=== PATIENT | female | born 1945 | race Two or more races ===

== ENCOUNTER 2020-03-20 14:29 | Emergency (ER) | payer OTHER ==
[~2020-03-20] VITALS: Ht 167.6 cm; Wt 60.8 kg
== END 2020-03-20 19:24 | disposition home or self-care (01) ==
LOC: ER 14:29 → EDBD 14:41 → ER 19:24
DX: K82.4 Cholesterolosis of gallbladder (principal)

== ENCOUNTER 2021-01-21 12:29 | Emergency (ER) | payer OTHER ==
[~2021-01-21] VITALS: Ht 167.6 cm; Wt 65.8 kg
[2021-01-21] MEDS ORDERED: CHILDREN'S ASPI81 MG (12:49)
[2021-01-21] MEDS ORDERED: ATACAND32 MG (12:49)
[2021-01-21] MEDS ORDERED: NORVASC5 MG (12:49)
[2021-01-21] MEDS ORDERED: TOPROL XL25 M1 (12:49)
== END 2021-01-21 16:18 | disposition home or self-care (01) ==
LOC: ER 12:29
DX: R07.89 Other chest pain (principal); F41.8 Other specified anxiety disorders; Z03.818 Encounter for observation for suspected exposure to other biological agents ruled out

== ENCOUNTER 2022-07-04 21:46 | Emergency (ER) | payer OTHER ==
[~2022-07-04] VITALS: Ht 167.6 cm; Wt 69.4 kg
[~2022-07-04 21:46] MED LIST: ATACAND32 MG; CHILDREN'S ASPI81 MG; NORVASC5 MG; TOPROL XL25 M1
[2022-07-04] MEDS ORDERED: FAMOTIDINE40 MG PO (22:45)
[2022-07-04] MEDS ORDERED: HYDROCHLOROTH12.5 MG PO (22:45)
[2022-07-05] MEDS ORDERED: RELAFEN DS1000 MG PO (01:45)
== END 2022-07-05 02:10 ==
LOC: ER 21:46
DX: M25.551 Pain in right hip (principal)